=== PATIENT | male | born 2000 | race Caucasian/White ===

== ENCOUNTER 2023-04-22 09:19 | Emergency (ER) | payer OTHER ==
[2023-04-22 09:37] VITALS: RESP 16
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
--- NOTE | 2023-04-22 10:30 | CT ---
EXAMINATION TYPE: CT brain wo con DATE OF EXAM: 04/22/2023 COMPARISON: none HISTORY: eye twitching CT DLP: 1099.[address] of the brain was performed. The ventricles, basal cisterns and sulci overlying the cerebral convexities demonstrate a normal appe arance. There is no evidence for intracranial hemorrhage or sulcal effacement. No mass effects are seen. Osseous calvarium is intact. If symptoms persist consider MRI as clinically warranted. IMPRESSION: 1. No acute intracranial process is seen at this time.
[2023-04-22 10:58] LABS: Basophils % (A) 0 %; Eosinophils # (A) 0.1 k/uL (0-0.7); Eosinophils % (A) 1 %; HGB 16.3 gm/dL (13.0-17.5); Lymphocytes # (A) 1.8 k/uL (1.0-4.8); Lymphocytes % (A) 15 %; MCHC 34.5 g/dL (31.0-37.0); MCV 83.9 fL (80.0-100.0); Mean Platelet Volume 7.1; Monocytes # (A) 1.2 k/uL (0-1.0); Monocytes % (A) 9 %; Neutrophils # (A) 8.9 k/uL (1.3-7.7); Neutrophils % (A) 72 %; Platelet Count 322 k/uL (150-450); RBC 5.61 m/uL (4.30-5.90); RDW 12.1 % (11.5-15.5); WBC 12.4 k/uL (4.0-11.0)
[2023-04-22 11:10] LABS: ALT 14 U/L (4-49); African American GFR (CKD) 85 (>60 ml/min/1.73 sqM); Anion Gap 12 mmol/L; Blood Urea Nitrogen 12 mg/dL (9-20); Calcium 9.9 mg/dL (8.4-10.2); Carbon Dioxide 26 mmol/L (22-30); Chloride 103 mmol/L (98-107); Glucose 107 mg/dL (74-99); Non-African American GFR(CKD) 74 (>60 ml/min/1.73 sqM); Sodium 141 mmol/L (137-145); Total Bilirubin 1.4 mg/dL (0.2-1.3); Total Protein 8.5 g/dL (6.3-8.2)
[2023-04-22 11:29] LABS: AST 22 U/L (17-59); Alkaline Phosphatase 76 U/L (38-126)
[2023-04-22 12:27] VITALS: BP 131/84; PULSE 87; TEMP 98.1
== END 2023-04-22 12:27 | disposition home or self-care (01) ==
LOC: EC 09:19
DX: H53.9 Unspecified visual disturbance (principal); F17.200 Nicotine dependence, unspecified, uncomplicated; F12.90 Cannabis use, unspecified, uncomplicated
CPT/HCPCS: 36415; 70450; 80053; 84443; 85025; 99284

== ENCOUNTER 2023-06-07 13:11 | Inpatient (IN) | payer MEDICAID, OTHER ==
--- NOTE | 2023-06-07 13:48 | ED ---
Psych HPI - General Chief Complaint: Psychiatric Symptoms Stated Complaint: Mental Health Issues Time Seen by Provider: 06/07/23 13:35 Source: patient, family, RN notes reviewed Mode of arrival: ambulatory Limitations: no limitations - History of Present Illness Initial Comments: 22-year-old male presents emergency from with family for psychiatric evaluation. Patient has no complaints himself he states he does use marijuana use denies alcohol abuse and physical complaints. Patient family is concerned that his been having very bizarre behavior he states that he had a "lobotomy". Patient denies any history of psychiatric issues. Family is concerned schizophrenia. Patient denies any other associated symptoms. - Related Data Allergies Allergy/AdvReac Type Severity Reaction Status Date / Time No Known Allergies Allergy Verified 04/22/23 09:33 Review of Systems ROS Statement: Those systems with pertinent positive or pertinent negative responses have been documented in the HPI. ROS Other: All systems not noted in ROS Statement are negative. Past Medical History Past Medical History: No Reported History History of Any Multi-Drug Resistant Organisms: None Reported Past Surgical History: No Surgical Hx Reported Past Psychological History: No Psychological Hx Reported, ADD/ADHD Smoking Status: Current every day smoker, Vaper Past Alcohol Use History: None Reported Past Drug Use History: Marijuana General Exam Limitations: no limitations General appearance: alert, in no apparent distress, anxious Head exam: Present: atraumatic, normocephalic, normal inspection Eye exam: Present: normal appearance, PERRL, EOMI. Absent: scleral icterus, conjunctival injection, periorbital swelling ENT exam: Present: normal exam, normal oropharynx, mucous membranes moist Respiratory exam: Present: normal lung sounds bilaterally. Absent: respiratory distress, wheezes, rales, rhonchi, stridor Cardiovascular Exam: Present: regular rate, normal rhythm, normal heart sounds. Absent: systolic murmur, diastolic murmur, rubs, gallop, clicks Neurological exam: Present: alert Psychiatric exam: Present: agitated, anxious Course Vital Signs 06/07/23 13:27 Temperature 98.7 F Pulse Rate 99 Respiratory 18 Rate Blood Pressure 135/92 O2 Sat by Pulse 99 Oximetry Medical Decision Making - Medical Decision Making Was pt. sent in by a medical professional or institution (, PA, LOCKSTITCH TOPSTITCHER, urgent care, hospital, or correction...) When possible be specific @ -No Did you speak to anyone other than the patient for history (EMS, parent, family, police, friend...)? What history was obtained from this source @ -Parents regarding recent behavioral issues, past medical history, family history Did you review nursing and triage notes (agree or disagree)? Why? @ -I reviewed and agree with nursing and triage notes Were old charts reviewed (outside hosp., previous admission, EMS record, old EKG, old radiological studies, urgent care reports/EKG's, correction records)? Report findings @ -No old charts were reviewed Differential Diagnosis (chest pain, altered mental status, abdominal pain women, abdominal pain men, vaginal bleeding, weakness, fever, dyspnea, syncope, headache, dizziness, GI bleed, back pain, seizure, CVA, palpatations, mental health, musculoskeletal)? @ -Psychosis, drug abuse, schizophrenia, bipolar disorder EKG interpreted by me (3pts min.). @ -None X-rays interpreted by me (1pt min.). @ -None done CT interpreted by me (1pt min.). @ -None done U/S interpreted by me (1pt. min.). @ -None done What testing was considered but not performed or refused? (CT, X-rays, U/S, labs)? Why? @ -None What meds were considered but not given or refused? Why? @ -None Did you discuss the management of the patient with other professionals (professionals i.e. , PA, LOCKSTITCH TOPSTITCHER, lab, RT, psych nurse, social work instructor, conveyor tender concrete mixing plant, teacher, customer service security officer, shoe parts caser)? Give summary @ -EPS evaluated the patient, psychiatry Was smoking cessation discussed for >3mins.? @ -No Was critical care preformed (if so, how long)? @ -No Were there social determinants of health that impacted care today? How? (Homelessness, low income, unemployed, alcoholism, drug addiction, transportation, low edu. Level, literacy, decrease access to med. care, fpc, rehab)? @ -No Was there de-escalation of care discussed even if they declined (Discuss DNR or withdrawal of care, Hospice)? DNR status @ -No What co-morbidities impacted this encounter? (DM, HTN, Smoking, COPD, CAD, Cancer, CVA, ARF, Chemo, Hep., AIDS, mental health diagnosis, sleep apnea, morbid obesity)? @ -None Was patient admitted / discharged? Hospital course, mention meds given and route , prescriptions, significant lab abnormalities, going to OR and other pertinent info. @ -Patient evaluated by EPS recommended psychiatric inpatient treatment. Undiagnosed new problem with uncertain prognosis? @ -No Drug Therapy requiring intensive monitoring for toxicity (Heparin, Nitro, Insulin, Cardizem)? @ -No Were any procedures done? @ -No Diagnosis/symptom? @ -Psychosis Acute, or Chronic, or Acute on Chronic? @ -Acute Uncomplicated (without systemic symptoms) or Complicated (systemic symptoms)? @ -Uncomplicated Side effects of treatment? @ -No Exacerbation, Progression, or Severe Exacerbation? @ -No Poses a threat to life or bodily function? How? (Chest pain, [place], AL, pneumonia, PE, COPD, DKA, ARF, appy, cholecystitis, CVA, Diverticulitis, Homicidal, Suicidal, threat to staff... and all critical care pts) @ -No Disposition Clinical Impression: Acute psychosis Disposition: TRANSFER TO PSYCH HOSP/UNIT Referrals: None,Stated [Primary Care Provider] - 1-2 days Time of Disposition: 15:37
[2023-06-07] MEDS ORDERED: NICOTINE 21MG/24HR PATCH TRANSDERM STA (16:38)
[2023-06-07] MEDS ORDERED: ACETAMINOPHEN TAB 325 MG TAB PO PRN (18:21)
[2023-06-07] MEDS ORDERED: MAGNESIUM HYDROXIDE 2,400 MG/30 ML CUP PO PRN (18:21)
[2023-06-07] MEDS ORDERED: MAG HYDROX/AL HYDROX/SIMETH 30 ML CUP PO PRN (18:21)
[2023-06-07] MEDS ORDERED: LORazepam 1 MG TAB PO PRN (18:23)
[2023-06-07] MEDS ORDERED: LORazepam 2 MG/ML INJ IM PRN (18:23)
[2023-06-07] MEDS ORDERED: HALOPERIDOL LACTATE 5 MG/ML 1 ML VIAL IM PRN (18:24)
[2023-06-07] MEDS ORDERED: haloperidoL 5 MG TAB PO PRN (18:25)
--- NOTE | 2023-06-08 04:33 | P.PN ---
Progress Note - Text Progress Note Date: 06/07/23 new consult , patient aggressive, punched a wall and was medicated , could not be evaluated at this time
[2023-06-08] MEDS ORDERED: risperiDONE 1 MG TAB PO STA (11:11)
[2023-06-08 11:18] LABS: HCT 41.7 % (39.0-53.0); HGB 14.2 gm/dL (13.0-17.5); MCH 29.2 pg (25.0-35.0); MCHC 34.1 g/dL (31.0-37.0); MCV 85.6 fL (80.0-100.0); Mean Platelet Volume 6.9; Platelet Count 249 k/uL (150-450); RBC 4.87 m/uL (4.30-5.90); RDW 12.5 % (11.5-15.5); WBC 8.1 k/uL (4.0-11.0)
--- NOTE | 2023-06-08 11:34 | P.HP ---
Psychiatric H&P - . H&P Date: 06/08/23 History & Physical: Allergies Allergy/AdvReac Type Severity Reaction Status Date / Time No Known Allergies Allergy Verified 06/07/23 19:19 Vital Signs Temp 98.4 F 06/07/23 19:29 Pulse 94 06/07/23 19:29 Resp 20 06/07/23 19:29 BP 141/95 06/07/23 19:29 Pulse Ox 99 06/07/23 13:27 FiO2 Intake & Output 06/07/23 06/08/23 06/08/23 18:59 06:59 18:59 Weight 72.121 kg 72.121 kg Laboratory Last Values WBC 8.1 k/uL (4.0-11.0) 06/08/23 10:45 RBC 4.87 m/uL (4.30-5.90) 06/08/23 10:45 Hgb 14.2 gm/dL (13.0-17.5) 06/08/23 10:45 Hct 41.7 % (39.0-53.0) 06/08/23 10:45 MCV 85.6 fL (80.0-100.0) 06/08/23 10:45 MCH 29.2 pg (25.0-35.0) 06/08/23 10:45 MCHC 34.1 g/dL (31.0-37.0) 06/08/23 10:45 RDW 12.5 % (11.5-15.5) 06/08/23 10:45 Plt Count 249 k/uL (150-450) 06/08/23 10:45 MPV 6.9 06/08/23 10:45 Coronavirus (PCR) Not Detected (Not Detectd) 06/07/23 17:02 06/08/23 11:34 IDENTIFYING DATA: Patient is a single, employed, 22-year-old male with significant history of cannabis use disorder who presents for hospital under petition on 06/07/2023 for acute psychosis. HPI: Patient presented to the hospital on 06/07/2023 for acute psychosis. The patient was petitioned by his mother. As per petition, the patient believed that the government is out to get him. Furthermore, when the patient was evaluated by the EPS nurse, the patient reported that he has a history of a lobotomy. He expressed significant concern and delusions of persecution and surveillance. Paranoid delusions and threats of suicide. He was subsequently certified and admitted onto our psychiatric unit. Upon evaluation on the psychiatric unit, the patient continues to endorse si gnificant psychotic symptoms. He reports that this has been going on since at least this past January. He reports that he was brought to the hospital in January and received a lobotomy. He states that things are not going well because he "pissed off some powerful people by telling the truth about things. I pissed off some rappers." He reports that he did this over the social media [facility]. He does report that people around the world are mad at him. He does endorse significant delusional thought content of grandiosity, persecution, and surveillance. He is overtly denying any auditory or visual hallucinations. In regards to mood, the patient does report that he has a history of excessive energy but not currently. He reports a history of being awake for days without sleep. He denies any history of prior attempts at suicide however does report that he does have suicidal thoughts. He reports no homicidal ideation. The patient does report a significant history of substance abuse. He reports that he uses marijuana every day. This includes a heavy amount of wax. He also uses a vaporizer daily. He denies any other illicit drug use. He is unable to provide any history of acute stressors aside from interactions with social media. PAST PSYCHIATRIC HISTORY: Patient states that he has been previously diagnosed with ADHD. Patient denies being on any psychiatric medications. He vaguely reports one prior psychiatric hospitalization however is unable to state where and when. Patient denies any psychiatric outpatient follow-up. Patient denies any history of suicide attempts in the past. PMH: Past Medical History: No Reported History History of Any Multi-Drug Resistant Organisms: None Reported Past Surgical History: No Surgical Hx Reported Past Psychological History: No Psychological Hx Reported, ADD/ADHD Smoking Status: Current every day smoker, Vaper Past Alcohol Use History: None Reported Past Drug Use History: Marijuana ALLERGIES: NO KNOWN DRUG ALLERGIES CHEMICAL DEPENDENCY HISTORY: Patient uses a vaporizer daily. Uses heavy amounts of marijuana daily. He denies any illicit drug use. He reports alcohol use. FAMILY PSYCHIATRIC/SUBSTANCE USE HISTORY: The patient reports that his father was schizophrenic. He states that his mother has bipolar disorder. He reports no family history of substance abuse. He reports no prior family history of suicide. SOCIAL HISTORY: Patient was born and raised in [place]. He is single, never , and has no children. He reports that he is "forever single." He currently lives with his mother and father as well as 8 siblings. He dropped out of the ninth grade in order to care for his siblings. 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 He denies any legal issues. He reports yazidism affiliation. He denies any service. MENTAL STATUS EXAM: General Appearance: Patient appears to be stated age is alert, directable, and attempts to cooperate. Patient appears to have fair hygiene and grooming. Behavior: Patient is seated without any agitated behavior. Patient eye contact is intermittent. Psychomotor activity slightly elevated. Speech: Patient's speech is fluent and nonpressured. Tangential. Mood/Affect: Patient reports their mood is "I feel like my soul has been sucked out of me." Affect is bizarre and expansive. Suicidality/Homicidality: Patient reports suicidal ideation but no intention or plan. Denies any homicidal ideation. Perceptions: Patient denies any visual hallucinations and denies any auditory hallucinations Though content/process: Grandiose, paranoid, and delusions and surveillance are evident. Flight of ideas and loose associations. Memory and concentration: Grossly poor at this time. Judgment and insight: Grossly poor STRENGTHS/WEAKNESSES: Strength is that the patient is resilient and appears to have family support. Weakness is that the patient engages in heavy marijuana use. INTELLECT: average IMPRESSIONS: Psychosis, unspecified Rule out cannabis-induced psychosis Rule out schizophreniform versus schizophrenia Nicotine dependence PLAN: -Patient is admitted under voluntary status to [facility] for stabilization of psychiatric symptoms and safety. Patient signed adult voluntary form and medication consent and is placed in patient's chart. -Medications : Will start patient on Risperdal 1 mg by mouth twice a day for psychosis Depakote 500 mg by mouth at bedtime for augmentation and mood stabilization -Ativan and Haldol PRN for agitation/aggression -Patient was counselled on substance abuse and desired to cut back on use -Patient was informed of the risks, benefits and side effects of the medication and patient verbally consented to taking the medications. Patient signed med consent form and was placed in chart. -Internal Medicine consult to perform medical evaluation and physical. -NRT - nicotine patch -SW on board for discharge planning. Encourage patient to participate in groups to work on coping skills. 06/08/23 11:34
[2023-06-08 11:41] LABS: ALT 13 U/L (4-49); AST 26 U/L (17-59); African American GFR (CKD) >90 (>60 ml/min/1.73 sqM); Albumin 4.3 g/dL (3.5-5.0); Alkaline Phosphatase 79 U/L (38-126); Anion Gap 10 mmol/L; Blood Urea Nitrogen 10 mg/dL (9-20); Calcium 9.6 mg/dL (8.4-10.2); Carbon Dioxide 24 mmol/L (22-30); Chloride 106 mmol/L (98-107); Glucose 94 mg/dL (74-99); Non-African American GFR(CKD) 89 (>60 ml/min/1.73 sqM); Potassium 4.4 mmol/L (3.5-5.1); Sodium 140 mmol/L (137-145); Total Protein 7.3 g/dL (6.3-8.2)
[2023-06-08 17:41] LABS: Chol/HDL Ratio 2.39 Ratio; LDL Cholesterol,Calculated 57.2 mg/dL (0.0-131.0); VLDL Calculation 10.92 mg/dL (5.00-40.00)
[2023-06-08] MEDS: NICOTINE 21MG/24HR PATCH TRANSDERM SCH (19:31)
[2023-06-08] MEDS: risperiDONE 1 MG TAB PO SCH (21:30)
[2023-06-08] MEDS: DIVALPROEX ER 500 MG TAB.ER.24H PO SCH (21:30)
[2023-06-09] MEDS: risperiDONE 1 MG TAB PO SCH (08:21)
[2023-06-09] MEDS: NICOTINE 21MG/24HR PATCH TRANSDERM SCH (08:21)
--- NOTE | 2023-06-09 10:29 | P.PN ---
Progress Note - Text Progress Note Date: 06/09/23 Interval History: Patient was seen sleeping in bed and was directable and agreeable to speak with real estate underwriter in the office. Patient reports that he is feeling better. He is currently denying any overt psychotic symptoms and is not reporting any paranoia or bizarre grandiose delusions. He denies any fear of persecution. He is able to acknowledge that he was feeling very paranoid when he first came in. He states that he did take her Haldol and Ativan last night because he felt that he was trapped. He reports feeling very tired today. He otherwise denies any suicidal or homicidal ideation, intention, and/or plan. He is not reporting any auditory or visual hallucinations. He has been adherent with his medication and reports sedation as a side effect. Mental Status Exam: General Appearance: Patient appears to be stated age is somewhat somnolent, directable, and cooperative. Behavior: Patient is calmly seated without any agitated behavior. Speech: Patient's speech is fluent and nonpressured. Mood/Affect: Mood is improving mildly, affect is congruent and sedated. Suicidality/Homicidality: Patient denies any suicidal or homicidal ideation. Perceptions: Patient denies any visual hallucinations and denies any auditory hallucinations Though content/process: There is no evidence of any delusional thought content and thought process is linear and goal-directed. Memory and concentration: AOX3, grossly intact for the purposes of this session Judgment and insight: Improving mildly Vital Signs Temp 97.3 F L 06/09/23 06:36 Pulse 100 06/09/23 06:36 Resp 16 06/09/23 06:36 BP 142/67 06/09/23 06:36 Pulse Ox 98 06/09/23 06:36 FiO2 Laboratory Results - Last 24 Hours 06/08/23 06/08/23 06/08/23 10:45 10:45 10:45 WBC 8.1 RBC 4.87 Hgb 14.2 Hct 41.7 MCV 85.6 MCH 29.2 MCHC 34.1 RDW 12.5 Plt Count 249 MPV 6.9 Sodium 140 Potassium 4.4 Chloride 106 Carbon Dioxide 24 Anion Gap 10 BUN 10 Creatinine 1.17 Est GFR (CKD-EPI)AfAm >90 Est GFR (CKD-EPI)NonAf [address] Glu mg/dL 100 Hemoglobin A1c 5.1 Calcium 9.6 Total Bilirubin 1.0 AST 26 ALT 13 Alkaline Phosphatase 79 Total Protein 7.3 Albumin 4.3 Triglycerides Cholesterol LDL Cholesterol, Calc VLDL Cholesterol, Calc HDL Cholesterol Cholesterol/HDL Ratio TSH 06/08/23 10:45 WBC RBC Hgb Hct MCV MCH MCHC RDW Plt Count MPV Sodium Potassium Chloride Carbon Dioxide Anion Gap BUN Creatinine Est GFR (CKD-EPI)AfAm Est GFR (CKD-EPI)NonAf Glucose Estimated Ave Glu mg/dL Hemoglobin A1c Calcium Total Bilirubin AST ALT Alkaline Phosphatase Total Protein Albumin Triglycerides 54.60 Cholesterol 117.00 LDL Cholesterol, Calc 57.2 VLDL Cholesterol, Calc 10.92 HDL Cholesterol 48.90 Cholesterol/HDL Ratio 2.39 TSH 1.090 Assessment Psychosis, unspecified Rule out cannabis-induced psychosis Rule out schizophreniform versus schizophrenia Nicotine dependence Plan: -Patient continues to meet criteria for inpatient psychiatric admission for symptom stabilization and safety. Patient has signed adult voluntary form and medication consent and was placed in patient's chart. -Medications: Change Risperdal to 0.5 mg in the morning and 1 mg at bedtime for psychosis Continue Depakote 500 mg by mouth at bedtime for mood stabilization/augmentation -The patient was counseled at length that marijuana may be contributing to his acute psychotic episodes. -When necessary Ativan and Haldol for agitation/aggression. -NRT - nicotine patch -SW on board for discharge planning. Encouraged the patient to participate in milieu.
[2023-06-09] MEDS: DIVALPROEX ER 500 MG TAB.ER.24H PO SCH (21:00)
[2023-06-09] MEDS ORDERED: risperiDONE 1 MG TAB PO SCH (21:00)
[2023-06-09] MEDS: LORazepam 1 MG TAB PO PRN (22:24)
--- NOTE | 2023-06-10 06:15 | P.MDCNMH ---
History of Present Illness H&P Date: 06/10/23 Chief Complaint: Medical evaluation 22-year-old male no significant past medical history Patient coming in for evaluation with family. Patient family concerned regarding bizarre behavior. Patient himself denies any complaints. Patient denies any hallucinations denies any suicidal or homicidal ideation He does admit to smoking marijuana and cigarettes he denies alcohol The patient currently denies any medical concerns , denies any fever, chills, cough, sore throat, chest pain , trouble breathing , nausea , vomiting, abd pain , changes in urinary or bowel habits. review of systems Pertinent positives as noted in HPI. All other systems were reviewed and are negative on exam Constitutional: No acute distress Eyes: Anicteric sclerae, moist conjunctiva, Pupils equal round reactive to light Lungs: Clear to auscultation Clear to percussion Normal respiratory effort, no accessory muscle use Cardiovascular: Heart regular in rate and rhythm, No murmurs, gallops, or rubs No peripheral edema Abdominal: Soft Nontender, no guarding, rebound or rigidity Abdomen moving with respiration Normoactive bowel sounds Extremities: Erythema with sunburn effect over bilateral upper extremity in her lower extremity No clubbing Pedal pulses intact and symmetrical Radial pulses intact and symmetrical No calf tenderness Psychiatric: Alert and oriented to person, place and time Neuro Muscles Strength 5/5 in all 4 extremities Sensation to light touch grossly present throughout Past Medical History Past Medical History: No Reported History History of Any Multi-Drug Resistant Organisms: None Reported Past Surgical History: No Surgical Hx Reported Past Psychological History: No Psychological Hx Reported, ADD/ADHD Smoking Status: Current every day smoker, Vaper Past Alcohol Use History: None Reported Past Drug Use History: Marijuana Medications and Allergies Home Medications Medication Instructions Recorded Confirmed Type Unable To Assess [Unable to Assess] 06/07/23 06/07/23 History Allergies Allergy/AdvReac Type Severity Reaction Status Date / Time No Known Allergies Allergy Verified 06/07/23 19:19 Physical Exam Vitals: Vital Signs Temp Pulse Resp BP Pulse Ox 06/09/23 06:36 97.3 F L 100 16 142/67 98 Cranial Nerve Examination - Cranial Nerves Cranial Nerve II- Optic: Intact Cranial Nerve III- Oculomotor: Intact Cranial Nerve IV- Trochlear: Intact Cranial Nerve V- Trigeminal: Intact Cranial Nerve - Abducens: Intact Cranial Nerve VII- Facial: Intact Cranial Nerve VIII- Auditory: Intact Cranial Nerve IX- Glossopharyngeal: Intact Cranial Nerve X- Vagus: Intact Cranial Nerve XI- Accessory: Intact Cranial Nerve XII- Hypoglossal: Intact Results CBC & Chem 7: 06/08/23 10:45 06/08/23 10:45 Assessment and Plan Assessment: Bizarre behavior Rule out schizophrenia and psychosis Management per psych Blood work reviewed TSH unremarkable 1.09 Renal function unremarkable Hemoglobin 14.2 white count 8 both unremarkable Tobacco smoking Nicotine replacement therapy offered Counseled to quit smoking Stable from medical standpoint Thank you for this consultation
[2023-06-10] MEDS: NICOTINE 21MG/24HR PATCH TRANSDERM SCH (08:25)
[2023-06-10] MEDS ORDERED: risperiDONE 0.5 MG TAB PO SCH (09:00)
--- NOTE | 2023-06-10 11:20 | P.PN ---
Progress Note - Text Progress Note Date: 06/10/23 Interval History: Patient was seen sleeping in bed and was directable and agreeable to speak with chart writer in the office. Patient reports that he continues to feel better. He is not endorsing any suicidal or homicidal ideation, intention, and/or plan. He reports no auditory or visual hallucinations today. He reports no paranoia or other delusions. He is alert and oriented in all spheres. He reports that the medication has helped him calm down significantly. He believes he is trending in the right direction. He reports no acute medical issues or concerns. He denies any issues regarding sleep or appetite. This provider spoke with the patient's mother. No acute concerns were expressed. We discussed at length that marijuana may be the precipitant of this psychotic episode. Mental Status Exam: General Appearance: Patient appears to be stated age is alert, directable, and cooperative. Behavior: Patient is calmly seated without any agitated behavior. Speech: Patient's speech is fluent and nonpressured. Mood/Affect: Mood is improving mildly, affect is somewhat constricted Suicidality/Homicidality: Patient denies any suicidal or homicidal ideation. Perceptions: Patient denies any visual hallucinations and denies any auditory hallucinations Though content/process: There is no evidence of any delusional thought content and thought process is linear and goal-directed. Memory and concentration: AOX3, grossly intact for the purposes of this session Judgment and insight: Improving mildly Vital Signs Temp 97.7 F 06/10/23 06:40 Pulse 136 H 06/10/23 06:40 Resp 16 06/10/23 06:40 BP 127/68 06/10/23 06:40 Pulse Ox 98 06/09/23 06:36 FiO2 Assessment Psychosis, unspecified Rule out cannabis-induced psychosis Rule out schizophreniform versus schizophrenia Nicotine dependence Plan: -Patient continues to meet criteria for inpatient psychiatric admission for symptom stabilization and safety. Patient has signed adult voluntary form and medication consent and was placed in patient's chart. -Medications: Change Risperdal to 1.5 mg at bedtime for psychosis Continue Depakote 500 mg by mouth at bedtime for mood stabilization/augmentation. CMP and Depakote level ordered. -The patient was counseled at length that marijuana may be contributing to his acute psychotic episodes. -When necessary Ativan and Haldol for agitation/aggression. -NRT - nicotine patch -SW on board for discharge planning. Encouraged the patient to participate in milieu.
[2023-06-10 12:31] LABS: ALT 15 U/L (4-49); AST 31 U/L (17-59); African American GFR (CKD) >90 (>60 ml/min/1.73 sqM); Albumin 4.6 g/dL (3.5-5.0); Alkaline Phosphatase 68 U/L (38-126); Anion Gap 9 mmol/L; Blood Urea Nitrogen 14 mg/dL (9-20); Calcium 9.4 mg/dL (8.4-10.2); Carbon Dioxide 28 mmol/L (22-30); Chloride 101 mmol/L (98-107); Glucose 103 mg/dL (74-99); Non-African American GFR(CKD) 83 (>60 ml/min/1.73 sqM); Potassium 4.4 mmol/L (3.5-5.1); Sodium 138 mmol/L (137-145); Total Bilirubin 0.8 mg/dL (0.2-1.3); Total Protein 7.7 g/dL (6.3-8.2)
[2023-06-10 12:37] LABS: Valproic Acid (Depakene) 43.1 ug/mL
[2023-06-10] MEDS ORDERED: risperiDONE 1 MG TAB PO SCH (21:00)
[2023-06-10] MEDS: DIVALPROEX ER 500 MG TAB.ER.24H PO SCH (21:17)
[2023-06-10] MEDS: LORazepam 1 MG TAB PO PRN (21:19)
[2023-06-11 06:56] VITALS: BP 116/64; PULSE 99; RESP 14; TEMP 98.1
[2023-06-11] MEDS: NICOTINE 21MG/24HR PATCH TRANSDERM SCH (09:05)
--- NOTE | 2023-06-11 10:57 | P.DS ---
Providers Date of admission: 06/07/23 18:18 Expected date of discharge: 06/11/23 Attending physician: Wesley Melgar MD Consults: 06/07/23 18:21 Consult Physician Routine Consulting Provider: Cori Alcazar Consult Reason/Comments: medical management Do you want consulting provider notified?: Yes Primary care physician: Stated None - Discharge Diagnosis(es) (1) Brief psychotic disorder Current Visit: Yes Status: Acute Priority: High (2) Cannabis-induced psychotic disorder with delusions Current Visit: Yes Status: Suspected Priority: High (3) Cannabis use disorder Current Visit: Yes Status: Chronic Priority: Medium (4) Nicotine dependence Current Visit: Yes Status: Chronic Priority: Medium Hospital Course: Admission HPI: Patient is a single, employed, 22-year-old male with significant history of cannabis use disorder who presents for hospital under petition on 06/07/2023 for acute psychosis. Patient presented to the hospital on 06/07/2023 for acute psychosis. The patient was petitioned by his mother. As per petition, the patient believed that the government is out to get him. Furthermore, when the patient was evaluated by the EPS nurse, the patient reported that he has a history of a lobotomy. He expressed significant concern and delusions of persecution and surveillance. Paranoid delusions and threats of suicide. He was subsequently certified and admitted onto our psychiatric unit. Upon evaluation on the psychiatric unit, the patient continues to endorse significant psychotic symptoms. He reports that this has been going on since at least this past January. He reports that he was brought to the hospital in January and received a lobotomy. He states that things are not going well because he "pissed off some powerful people by telling the truth about things. I pissed off some rappers." He reports that he did this over the social media [employer]. He does report that people around the world are mad at him. He does endorse significant delusional thought content of grandiosity, persecution, and surveillance. He is overtly denying any auditory or visual hallucinations. In regards to mood, the patient does report that he has a history of excessive energy but not currently. He reports a history of being awake for days without sleep. He denies any history of prior attempts at suicide however does report t hat he does have suicidal thoughts. He reports no homicidal ideation. The patient does report a significant history of substance abuse. He reports that he uses marijuana every day. This includes a heavy amount of wax. He also uses a vaporizer daily. He denies any other illicit drug use. He is unable to provide any history of acute stressors aside from interactions with social media. Patient states that he has been previously diagnosed with ADHD. Patient denies being on any psychiatric medications. He vaguely reports one prior psychiatric hospitalization however is unable to state where and when. Patient denies any psychiatric outpatient follow-up. Patient denies any history of suicide attempts in the past. Hospital course: Upon admission to the unit patient was initially presenting as overtly psychotic and paranoid. He did endorse significant grandiosity and magical thinking. Patient was however directable and agreeable to commence treatment and signed voluntarily onto the psychiatric unit. Patient got along well with other patients on the unit and followed unit protocol. Patient was compliant with the medications and denied any side effects throughout hospital course. Patient was started on a regimen of Risperdal and Depakote in order to address acute psychosis and mood stability. Patient spoke of his stressors and engaged in therapy both group and individual. Patient was also seen by medical team for history and physical exam. Over the course of the hospitalization, the patient displayed significant improvement in regards to his target symptoms of psychosis and peter. He developed better insight and judgment and was much more grounded in reality. He became more future and goal oriented. His medications were tapered slightly due to concerns for oversedation as the patient was treatment elizabeth. During this hospitalization, he was also counseled at great length on abstaining from marijuana as this may have been the precipitating factor that led up to his psychotic episode. On the day of discharge, the patient is not reporting any suicidal or homicidal ideation, intention, and/or plan. He reports no access to firearms or other weapons. He denies any auditory or visual hallucinations. He reports no paranoia or other delusions. He has been in adherent with his medication and is not endorsing any significant side effects. He reports no chest pain, shortness of breath, palpitations, akathisia, or tardive dyskinesia. The patient reports wanting to live for his health and for his family. The patient does have a significant history of substance abuse however was counseled at great length on abstaining from all substances including tobacco, alcohol, marijuana, and all illicit drugs. As the patient no longer met criteria for continued inpatient psychiatric hospitalization, he was subsequently discharged after appropriate safety planning. Mental status exam: General Appearance: Patient appears to be stated age is alert, pleasant, and cooperative. Patient is in no acute distress and has fair hygiene and grooming Behavior: Patient is calmly seated without any agitated behavior. Speech: Patient's speech is fluent and nonpressured. Mood/Affect: Patient reports their mood is "much better", affect is congruent and euthymic to bright. Suicidality/Homicidality: Patient denies having any suicidal or homicidal ideation intent or plan. Perceptions: Patient denies any auditory or visual hallucinations. Though content/process: There is no evidence of any delusional thought content and thought process is linear and goal-directed. The patient is future oriented Memory and concentration: AOX3, grossly intact for the purposes of this session. Can spell "WORLD" backwards correctly. Judgment and insight: Improved with guarded prognosis Impression: Brief psychotic episode Rule out cannabis-induced psychosis Cannabis use disorder Nicotine dependence Plan: -Continue with discharge today as patient has improved and stabilized psychiatrically and is not currently an imminent threat to himself and/or others. Patient will remain at chronically elevated risk due to his substance abuse. -Continue medications: Depakote ER 500 mg by mouth at bedtime for mood stabilization Risperdal 1.5 mg by mouth at bedtime for psychosis/mood stabilization -Patient was counseled on the need for medication compliance and appropriate f ollow-up at mental health and also primary care for medical issues. Patient verbalized understanding and agreed. -Social work to arrange for and conduct family meeting to ensure safety upon discharge and answer any questions/concerns. Social work also to arrange for patients follow up appointments with [facility] for psychiatric care along with follow up with primary care provider. -Patient counseled on abstaining from recreational drugs and marijuana and alcohol. Was informed/educated on the adverse effects on their physical and mental health. Patient verbally agreed and understood. Patient was offered substance abuse treatment however declined at this time. -Patient was instructed to return to the hospital or seek immediate medical care if their psychiatric or medical symptoms do worsen or reoccur. -Psychoeducation and supportive therapy provided to patient. Risks and benefits of pharmacological treatment versus the risks and benefits of nontreatment weighed and discussed. Informed consent discussion held. Common side effects of psychotropics discussed such as, but not limited to headache, GI disturbance, sexual dysfunction, movement disorders, sedation, and orthostatic hypotension. Life threatening and blackbox warnings of prescribed medications also discussed. Potential risks of operating a vehicle or heavy machinery discussed with patient at length. Advised on importance of compliance and a reliable and responsible manner. Patient advised to review FDA consumer labeling of all medications prior to taking. Patient verbalized understanding of potential risks, and agrees with current treatment plan. Patient advised to medically contact physician/emergency personnel if any acute changes in condition occur. Vital Signs Temp 98.1 F 06/11/23 06:28 Pulse 99 06/11/23 06:28 Resp 14 06/11/23 06:28 BP 116/64 06/11/23 06:28 Pulse Ox 98 06/09/23 06:36 FiO2 Laboratory Results WBC 8.1 k/uL (4.0-11.0) 06/08/23 10:45 RBC 4.87 m/uL (4.30-5.90) 06/08/23 10:45 Hgb 14.2 gm/dL (13.0-17.5) 06/08/23 10:45 Hct 41.7 % (39.0-53.0) 06/08/23 10:45 MCV 85.6 fL (80.0-100.0) 06/08/23 10:45 MCH 29.2 pg (25.0-35.0) 06/08/23 10:45 MCHC 34.1 g/dL (31.0-37.0) 06/08/23 10:45 RDW 12.5 % (11.5-15.5) 06/08/23 10:45 Plt Count 249 k/uL (150-450) 06/08/23 10:45 MPV 6.9 06/08/23 10:45 Sodium 138 mmol/L (137-145) 06/10/23 11:00 Potassium 4.4 mmol/L (3.5-5.1) 06/10/23 11:00 Chloride 101 mmol/L (98-107) 06/10/23 11:00 Carbon Dioxide 28 mmol/L (22-30) 06/10/23 11:00 Anion Gap 9 mmol/L 06/10/23 11:00 BUN 14 mg/dL (9-20) 06/10/23 11:00 Creatinine 1.25 mg/dL (0.66-1.25) 06/10/23 11:00 Est GFR (CKD-EPI)AfAm >90 (>60 ml/min/1.73 sqM) 06/10/23 11:00 Est GFR (CKD-EPI)NonAf 83 (>60 ml/min/1.73 sqM) 06/10/23 11:00 Glucose 103 mg/dL (74-99) H 06/10/23 11:[address] Glu mg/dL 100 mg/dL 06/08/23 10:45 Hemoglobin A1c 5.1 % (<=6.0) 06/08/23 10:45 Calcium 9.4 mg/dL (8.4-10.2) 06/10/23 11:00 Total Bilirubin 0.8 mg/dL (0.2-1.3) 06/10/23 11:00 AST 31 U/L (17-59) 06/10/23 11:00 ALT 15 U/L (4-49) 06/10/23 11:00 Alkaline Phosphatase 68 U/L (38-126) 06/10/23 11:00 Total Protein 7.7 g/dL (6.3-8.2) 06/10/23 11:00 Albumin 4.6 g/dL (3.5-5.0) 06/10/23 11:00 Triglycerides 54.60 mg/dL (0.00-149.00) 06/08/23 10:45 Cholesterol 117.00 mg/dL (0.00-200.00) 06/08/23 10:45 LDL Cholesterol, Calc 57.2 mg/dL (0.0-131.0) 06/08/23 10:45 VLDL Cholesterol, Calc 10.92 mg/dL (5.00-40.00) 06/08/23 10:45 HDL Cholesterol 48.90 mg/dL (40.00-60.00) 06/08/23 10:45 Cholesterol/HDL Ratio 2.39 Ratio 06/08/23 10:45 TSH 1.090 mIU/L (0.465-4.680) 06/08/23 10:45 Valproic Acid 43.1 ug/mL 06/10/23 11:00 Coronavirus (PCR) Not Detected (Not Detectd) 06/07/23 17:02 Allergies Allergy/AdvReac Type Severity Reaction Status Date / Time No Known Allergies Allergy Verified 06/07/23 19:19 Patient Condition at Discharge: Stable Plan - Discharge Summary Discharge Rx Participant: No New Discharge Prescriptions: New Divalproex ER [Depakote ER] 500 mg PO HS 30 Days #30 tab risperiDONE [RisperDAL] 1.5 mg PO HS 30 Days #45 tab Discharge Medication List Divalproex ER [Depakote ER] 500 mg PO HS 30 Days #30 tab 06/11/23 [Rx] risperiDONE [RisperDAL] 1.5 mg PO HS 30 Days #45 tab 06/11/23 [Rx] Follow up Appointment(s)/Referral(s): [facility] [NON-STAFF] - 1 Week Patient Instructions/Handouts: Psychotic Disorder (DC) Activity/Diet/Wound Care/Special Instructions: Avoid the use of street drugs and alcohol. Take all medications as prescribed. When you are in need of refills on your medications, please contact your medical provider and/or outpatient psychiatrist/provider to have this done. Please go to your scheduled outpatient appointment for aftercare treatment. If symptoms return or become worse, call the crisis line at and/or go to the nearest emergency room for evaluation. National Suicide Hotline 818. Discharge Disposition: HOME SELF-CARE
== END 2023-06-11 13:05 | disposition home or self-care (01) | DRG 776 ==
LOC: EC 13:11 → 3MHU 18:18
PROVIDERS: ADMIT Psychiatry & Neurology Psychiatry; ATTEND Psychiatry & Neurology Psychiatry
DX: F12.150 Cannabis abuse with psychotic disorder with delusions (principal); F17.200 Nicotine dependence, unspecified, uncomplicated; F31.9 Bipolar disorder, unspecified; Z79.899 Other long term (current) drug therapy; Z81.8 Family history of other mental and behavioral disorders; Z20.822 Contact with and (suspected) exposure to COVID-19
CPT/HCPCS: 80053; 80061; 80164; 82075; 83036; 84443; 85027; 87635; 99285